=== PATIENT | male | born 1995 | race Caucasian/White ===

== ENCOUNTER 2021-08-16 20:58 | Emergency (ER) | payer BC, SELFPAY ==
--- NOTE | ~2021-08-16 | XR_ITS ---
EXAMINATION: XR chest 2V DATE: 08/16/2021 22:12 INDICATION: Cough. TECHNIQUE: Frontal and lateral views of the chest were obtained. COMPARISON: None. FINDINGS: The chest demonstrates clear lungs without pneumonia, pleural effusion, or pneumothorax. Th e heart size is normal. IMPRESSION: 1. No acute cardiopulmonary disease. Reviewed, dictated and finalized at location [facility]
[2021-08-16 21:01] VITALS: BP 143/74; PULSE 118; RESP 18; TEMP 37.7; O2SAT 95
--- NOTE | 2021-08-16 22:01 | ED.GENADULT ---
HPI - General Adult General Chief complaint: Unspecified Stated complaint: cough, headache, shortness of breath, chest pain Time Seen by Provider: 08/16/21 21:11 Source: patient Mode of arrival: ambulatory Limitations: no limitations History of Present Illness HPI narrative: Patient presents for evaluation of respiratory symptoms. He indicates last week he had a productive cough of white sputum. He has since developed shortness of breath, sinus headache, hot flashes, and pleuritic chest pain. Denies any chills, nausea, vomiting, diarrhea. No recent sick contacts to his knowledge. He does not smoke. No personal hx of COVID. He has received both doses of his [employer] COVID vaccine. He has tried some OTC meds which have not particularly helped. He now has a sore throat which he attributes to frequent coughing. He has experienced watering eyes. Today he has had a sensation that his heart is racing. No additional complaints or concerns. Related Data Allergies Allergy/AdvReac Type Severity Reaction Status Date / Time azithromycin [From Zithromax] Allergy Unknown Verified 08/16/21 21:12 Review of Systems Review of Systems: CONSTITUTIONAL: Reports hot flashes. Denies objective fever, chills, or sweats. EYES: Reports tearing from both eyes. Denies visual changes, redness ENT: Denies rhinorrhea, congestion, sore throat, or otalgia. CARDIOVASCULAR: Denies chest pain, palpitations, or edema. RESPIRATORY: Reports productive cough of white sputum and SOB. GASTROINTESTINAL: Denies abdominal pain, nausea, vomiting, or diarrhea. GENITOURINARY: Denies dysuria or hematuria. SKIN: Denies rash or itching. MUSCULOSKELETAL: Denies back pain, joint pain, or myalgia. NEUROLOGIC:Reports headache. Denies numbness, dizziness, or weakness. PSYCHIATRIC: Denies anxiety or depression. [facility] Past Medical History Medical History No pertinent past medical history Surgical History Surgical History History of tympanostomy tube placement Family History Family History Mother No pertinent past medical history Social History Social History Smoking status: Never smoker Alcohol intake: current Alcohol use details: social Substance use: never Living arrangements: alone Additional occupation/education comments: [employer] Gender identity (if verbalized by the patient): Male Spiritual care concerns: No Exam Narrative: GENERAL: Well-appearing, well-nourished, and in no acute distress. HEAD: Normocephalic, atraumatic. EYES: PERRLA and EOMI. ENT: Nares clear, no rhinorrhea or epistaxis. Mucous membranes moist. Oropharynx without tonsillar hypertrophy exudate or other lesions, however there is erythema present. Bilateral TMs pearly hamilton nonbulging NECK: Supple. No adenopathy or masses. No carotid bruits or JVD CHEST: Cough noted on exam. Clear to auscultation. No respiratory distress. No wheezes rales or rhonchi HEART: Rate 120. Regular rhythm. No murmur heard. Normal peripheral pulses. ABDOMEN: Soft, nontender, nondistended, normal active bowel sounds. EXTREMITIES: Normal range of motion. No edema. SKIN: Warm, dry, no rash. NEURO: No focal deficits. Alert and oriented x3. PSYCH: Normal mood and affect. Course Course Emergency Course: This is a 26-year-old male that presented with complaints of respiratory symptoms. He was initially tachycardic and was hydrated. His influenza a was positive. Strep was negative. Covid swab was obtained and is pending. Chest x-ray showed no acute abnormality. HR improved to 92 bpm after hydration. Advised to follow-up outpatient for further evaluation and treatment return for worsening symptoms. Recommended increased hydration. He requested cough medication
--- NOTE | 2021-08-16 22:03 | ECG_ITS ---
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
[2021-08-16 22:27] VITALS: BP 137/80; PULSE 108; RESP 22; O2SAT 97
[2021-08-16] MEDS: ACETAMINOPHEN 500 MG TABLET 1000 MG PO (22:30)
[2021-08-16] MEDS: SODIUM CHLORIDE 0.9% IV 1,000 ML 999 ML IV CONT (22:31)
[2021-08-16 22:32] LABS: Basophils Percent Auto 0.4 % (0.2-1.2); Eosinophils Absolute Auto 0.1 K/mm3 (0-0.3); Eosinophils Percent Auto 1.1 % (0-4.4); Hematocrit 47.8 % (42.0-52.0); Hemoglobin 16.4 g/dL (14.0-18.0); Immature Granulocyte Absolute 0.01 K/mm3 (0.00-0.031); Immature Granulocyte Percent A 0.1 % (0-0.5); Lymphocytes Absolute Auto 0.67 K/mm3 (0.9-3.2); Lymphocytes Percent Auto 9.4 % (18.3-44.2); Mean Corpuscular HGB Conc 34.3 g/dl (32-36); Mean Corpuscular Hemoglobin 31.3 pg (26-34); Mean Corpuscular Volume 91.2 fl (80-100); Mean Platelet Volume 9.4 fl (7.4-10.4); Monocytes Percent Auto 14.5 % (2.6-8.5); Neutrophils Absolute Auto 5.3 K/mm3 (1.3-6.7); Neutrophils Percent Auto 74.5 % (45.5-73.1); Platelet Count Result 193 k/mm3 (150-375); Red Blood Count 5.24 M/mm3 (4.6-6.20); Red Cell Distribution Width 13.2 % (11.5-14.5); White Blood Count 7.1 K/mm3 (4.5-10.0)
[2021-08-16 22:44] LABS: Lactic Acid Reflex 1.7 mmol/L (0.7-2.1)
[2021-08-16 22:45] LABS: Alanine Aminotransferase 26 U/L (4-50); Albumin Level 4.5 g/dL (3.5-5.1); Alkaline Phosphatase 95 U/L (38-126); Anion Gap 8 mmol/L (8-16); Aspartate Amino Transferase 33 U/L (17-59); Bilirubin,Total 0.5 mg/dL (0.2-1.3); Blood Urea Nitrogen 10 mg/dL (9-20); Calcium 9.4 mg/dL (8.4-10.2); Carbon Dioxide 27 mmol/L (22-30); Chloride 98 mmol/L (98-107); Estimated CRCL calculation 114 ml/min; Estimated Glomerular Filt Rate > 60; Glucose 127 mg/dL (65-110); Sodium 133 mmol/L (137-145)
[2021-08-16 22:56] LABS: Troponin I < 0.012 ng/mL (0.000-0.034)
[2021-08-17 00:03] VITALS: BP 136/70; PULSE 103; RESP 20; O2SAT 96
[2021-08-17] MEDS: SODIUM CHLORIDE 0.9% IV 1,000 ML 999 ML IV CONT (00:08)
[2021-08-17 01:18] VITALS: BP 114/65; PULSE 107; RESP 14; TEMP 37.4; O2SAT 96
[2021-08-18 02:32] LABS: SARS-CoV-2 RNA PCR Positive
== END 2021-08-17 01:17 | disposition home or self-care (01) ==
PROVIDERS: Emergency Provider Nurse Practitioner
DX: U07.1 COVID-19 (principal); J10.1 Influenza due to other identified influenza virus with other respiratory manifestations
CPT/HCPCS: 36415; 71046; 80053; 83605; 84484; 85025; 87081; 87804; 87880; 93005; 96360; 96361; 99284; A9270; C9803; J7030; U0003; U0005